=== PATIENT | female | born 1995 | race Caucasian/White ===

== ENCOUNTER 2020-05-18 13:05 | Inpatient (IN) | payer MEDICAID ==
[~2020-05-18] VITALS: Ht 160 cm; Wt 67.1 kg
[2020-05-18] MEDS ORDERED: BETAMETH ACET/BETAMETH NA PH 30 MG/5 ML VIAL IM SCH (14:20)
[2020-05-18] MEDS ORDERED: PRETAB PO (14:33)
[2020-05-18] MEDS ORDERED: FERR325E14 PO (14:33)
[2020-05-18 14:46] VITALS: BP 102/58
[2020-05-18 14:55] LABS: APPEARANCE,URINE CLEAR (CLEAR); BILIRUBIN,URINE NEGATIVE (NEGATIVE); BLOOD, URINE NEGATIVE (NEGATIVE); COLOR,URINE YELLOW (YELLOW); LEUKOCYTE ESTERASE ,URINE NEGATIVE (NEGATIVE); NITRITE, URINE NEGATIVE (NEGATIVE); UGLUCOSE NEGATIVE (NEGATIVE)
[2020-05-18 14:56] LABS: BASOPHILS # (AUTO) 0.1 K/uL (0.00-0.22); BASOPHILS % (AUTO) 0.7 % (0.0-2.0); EOSINOPHILS # (AUTO) 0.1 K/uL (0-0.4); EOSINOPHILS % (AUTO) 0.8 % (0.0-4.0); HEMATOCRIT 33.3 % (36-48); HEMOGLOBIN 11.3 g/dL (12.0-16.0); LYMPHOCYTES # (AUTO) 0.9 K/uL (2.5-16.5); LYMPHOCYTES % (AUTO) 9.8 % (20.5-51.1); MEAN CORPUSCULAR HEMOGLOBIN 32 pg (27-31); MEAN CORPUSCULAR HGB CONC 34 g/dL (33-37); MEAN CORPUSCULAR VOLUME 93.2 fL (80-94); MONOCYTES # (AUTO) 0.6 K/uL (0.8-1.0); NEUTROPHILS % (AUTO) 82.7 % (42.2-75.2); PLATELET COUNT (AUTO) 198 K/uL (140-450); RED BLOOD CELL COUNT(AUTO) 3.57 MIL/uL (4.20-5.40); RED CELL DISTRIBUTION WIDTH 14.2 % (11.6-13.7); WHITE BLOOD COUNT (AUTO) 9.6 K/uL (4.8-10.8)
[2020-05-18 15:09] LABS: ALBUMIN 2.7 g/dL (3.4-5.0); ANION GAP 13.8 (8-16); CARBON DIOXIDE 25.7 mmol/L (21-32); CREATININE 0.5 mg/dL (0.6-1.3); POTASSIUM 3.5 mmol/L (3.5-5.1); TOTAL BILIRUBIN 0.3 mg/dL (0.0-1.0)
[2020-05-18] MEDS ORDERED: INDOMETHACIN 25 MG CAP PO SCH ×4 (15:30→18:30)
[2020-05-18] MEDS: PANTOPRAZOLE 40 MG TABEC PO SCH (18:41)
[2020-05-19] MEDS: INDOMETHACIN 25 MG CAP PO SCH ×4 (00:13→18:36)
--- NOTE | 2020-05-19 08:10 | NUR ---
PATIENT HAS BEEN SCREENED AND CATEGORIZED LOW NUTRITION RISK. PATIENT WILL BE SEEN WITHIN 7 DAYS OF ADMISSION. 05/25/[address]
[2020-05-19] MEDS ORDERED: BETAMETH ACET/BETAMETH NA PH 30 MG/5 ML VIAL IM ONE ×2 (14:54→15:00)
[2020-05-19] MEDS: PANTOPRAZOLE 40 MG TABEC PO SCH (18:36)
[2020-05-20] MEDS: INDOMETHACIN 25 MG CAP PO SCH ×4 (00:23→18:01)
[2020-05-20] MEDS: PANTOPRAZOLE 40 MG TABEC PO SCH (18:01)
[2020-05-20] MEDS: NIFEdipine 10 MG CAPLF PO SCH (18:03)
[2020-05-20] MEDS ORDERED: ACETAMINOPHEN EXTRA STRENGTH 500 MG TAB PO PRN (18:15)
[2020-05-20] MEDS ORDERED: ACETAMINOPHEN EXTRA STRENGTH 500 MG TAB ONE (18:17)
[2020-05-21] MEDS: NIFEdipine 10 MG CAPLF PO SCH ×4 (00:09→17:54)
[2020-05-21] MEDS: INDOMETHACIN 25 MG CAP PO SCH ×4 (00:11→17:53)
== END 2020-05-21 17:58 | disposition home or self-care (01) | DRG 566 ==
LOC: OBSVTOIN 13:05 → MLD 13:05 → MFCC 13:23
PROVIDERS: ADMIT Obstetrics & Gynecology; ATTEND Obstetrics & Gynecology
DX: O99.512 Diseases of the respiratory system complicating pregnancy, second trimester (principal); O60.02 Preterm labor without delivery, second trimester; Z3A.24 24 weeks gestation of pregnancy; J45.909 Unspecified asthma, uncomplicated
CPT/HCPCS: 36415; 59025; 76817; 80053; 81003; 85025; 86592; 86762; 86886; 86900; 86901; 87340; J0702